=== PATIENT | male | born 1945 | race Two or more races ===

== ENCOUNTER 2016-06-09 12:28 | Outpatient (CLI) | payer MEDICARE, MEDICAID | END 2016-06-09 23:59 | disposition home or self-care (01) | LOC: WOU 12:28 | PROVIDERS: ATTEND Specialist | DX: S61.211D Laceration without foreign body of left index finger without damage to nail, subsequent encounter (principal); W26.0XXD Contact with knife, subsequent encounter; R20.0 Anesthesia of skin | CPT/HCPCS: G0463 ==